=== PATIENT | male | born 1950 | race Caucasian/White ===

== ENCOUNTER → 2017-12-13 | Outpatient (CLI) | payer MEDICARE | END | disposition home or self-care (01) | LOC: PCVCCLINIC 14:52 | DX: I49.3 Ventricular premature depolarization (principal); I45.89 Other specified conduction disorders; E78.5 Hyperlipidemia, unspecified; E83.110 Hereditary hemochromatosis; R94.31 Abnormal electrocardiogram [ECG] [EKG]; Z87.891 Personal history of nicotine dependence | CPT/HCPCS: 93005; G0463 ==

== ENCOUNTER → 2017-12-15 | Outpatient (CLI) | payer MEDICARE | END | disposition home or self-care (01) | LOC: PCVCIMAG 16:08 | DX: I49.3 Ventricular premature depolarization (principal); R00.2 Palpitations; E78.5 Hyperlipidemia, unspecified; Z72.0 Tobacco use | CPT/HCPCS: 93325; 93351 ==